=== PATIENT | female | born 1960 | race Caucasian/White ===

== ENCOUNTER 2016-07-04 14:26 | Emergency (ER) | payer MEDICAID ==
--- NOTE | ~2016-07-04 | CR261 ---
[facility]. [facility] A Service of [facility] & [facility] RADIOLOGY TEXT RESULTS PATIENT: LIANA MENENDEZ LOCATION: SED : 64 UNIT #: [id number] AGE: [address]: Sola Moses SEX: F ORDER DR: [id number] [address] [address] [id number] E MR#: [id number] Acc #: [id number] NAME: LIANA MENENDEZ : 1960 SEX: F STUDY DATE/TIME: 07/04/2016 1358 UNIT: SED ROOM: STUDY DESCRIPTION: CR Toe 2 Views [address] Attending Physician: Sola Moses Pa-C Referring Physician: Sola Moses Pa-C Ordering Physician: Sola Moses Pa-C Primary Care Physician: No Primary Care Physician MEDICAL IMAGING REPORT This report is preliminary unless electronic signature is present. EXAM Right fifth toe 07/04/2016 13:58 hours HISTORY The patient smashed right fifth toe in a door 1 month ago with persistent painful red knot on toe. COMPARISON None. FINDINGS AP, lateral and oblique views demonstrate soft tissue swelling of the fifth toe. There is no acute fracture or dislocation. IMPRESSION Soft tissue swelling of the fifth toe with no fracture or dislocation. Dictated by... Grecia Hull M.D. THIS IS AN ELECTRONICALLY VERIFIED REPORT Grecia Hull M.D. at 07/05/2016 9:27 AM Quirino TD: 07/04/2016 15:24 JOB #: [id number] MEDICAL IMAGING REPORT Page 1 of 1
[~2016-07-04 14:26] MED LIST: [UNRECOGNIZED DRUG - REMARK]
== END 2016-07-04 14:49 | disposition home or self-care (01) ==
LOC: SED 14:26
DX: M79.674 Pain in right toe(s) (principal); I10 Essential (primary) hypertension; F17.200 Nicotine dependence, unspecified, uncomplicated
CPT/HCPCS: 73660; 99283